=== PATIENT | female | born 1945 ===

== ENCOUNTER 2017-04-13 05:45 | Outpatient (RCR) | payer MEDICARE, MEDICAID ==
[~2017-04-13] VITALS: Ht 152.4 cm; Wt 62.0 kg
[~2017-04-13 05:45] MED LIST: LIDOCAINE/SOD BICARB 8.4% SYR SC PRN; LOPERAMIDE HCL 2 MG CAP PO PRN; PARICALCITOL 2 MCG/ML VIAL IVP PRN; PROMETHAZINE HCL 25 MG TAB PO PRN; diphenhydr DIALYSIS 50 MG/ML IVP PRN
[2017-04-13] MEDS: PARICALCITOL 2 MCG/ML VIAL IVP PRN (15:30)
[2017-04-15] MEDS: SODIUM FERRIC GLUC 62.5 MG/5ML IVP PRN (15:36)
[2017-04-15] MEDS: PARICALCITOL 2 MCG/ML VIAL IVP PRN (15:36)
[2017-04-15 16:09] LABS: PLATELET COUNT, AUTOMATED 125 K/uL (150-450)
[2017-04-17] MEDS: PARICALCITOL 2 MCG/ML VIAL IVP PRN (15:21)
[2017-04-17] MEDS: DARBEPOETIN ESRD 25 MCG/ML IVP PRN (15:21)
[2017-04-20] MEDS: PARICALCITOL 2 MCG/ML VIAL IVP PRN (16:12)
[2017-04-22] MEDS: SODIUM FERRIC GLUC 62.5 MG/5ML IVP PRN (15:49)
[2017-04-22] MEDS: PARICALCITOL 2 MCG/ML VIAL IVP PRN (15:49)
[2017-04-24] MEDS: DARBEPOETIN ESRD 25 MCG/ML IVP PRN (15:47)
[2017-04-24] MEDS: PARICALCITOL 2 MCG/ML VIAL IVP PRN (15:47)
[2017-04-27] MEDS: PARICALCITOL 2 MCG/ML VIAL IVP PRN (15:27)
[2017-04-29] MEDS: SODIUM FERRIC GLUC 62.5 MG/5ML IVP PRN (14:02)
[2017-04-29] MEDS: PARICALCITOL 2 MCG/ML VIAL IVP PRN (14:02)
[2017-05-01] MEDS: PARICALCITOL 2 MCG/ML VIAL IVP PRN (14:19)
[2017-05-04] MEDS: PARICALCITOL 2 MCG/ML VIAL IVP PRN (15:02)
[2017-05-06] MEDS: SODIUM FERRIC GLUC 62.5 MG/5ML IVP PRN (14:34)
[2017-05-06] MEDS: PARICALCITOL 2 MCG/ML VIAL IVP PRN (14:34)
[2017-05-06] MEDS ORDERED: CIN30PT PO (17:33)
[2017-05-08] MEDS: PARICALCITOL 2 MCG/ML VIAL IVP PRN (14:05)
[2017-05-11] MEDS: PARICALCITOL 2 MCG/ML VIAL IVP PRN (14:12)
[2017-05-13 14:19] LABS: PLATELET COUNT, AUTOMATED 67 K/uL (150-450)
[2017-05-13] MEDS: PARICALCITOL 2 MCG/ML VIAL IVP PRN (15:12)
[2017-05-13] MEDS: SODIUM FERRIC GLUC 62.5 MG/5ML IVP PRN (15:12)
[2017-05-15] MEDS: PARICALCITOL 2 MCG/ML VIAL IVP PRN (14:06)
[2017-05-18] MEDS: PARICALCITOL 2 MCG/ML VIAL IVP PRN (13:33)
[2017-05-20] MEDS ORDERED: AMLO-99 PO (11:56)
[2017-05-20] MEDS ORDERED: SEVE800T16 PO (11:56)
[2017-05-20] MEDS ORDERED: CLOP75TA PO (11:56)
[2017-05-20] MEDS ORDERED: ASPI81TA94 PO (11:56)
[2017-05-20] MEDS ORDERED: LEVO-3 PO (11:56)
[2017-05-20] MEDS ORDERED: HYDR-4309 PO (11:56)
[2017-05-20] MEDS ORDERED: CLON-327 PO (11:56)
[2017-05-20] MEDS ORDERED: GABA-549 PO (11:56)
[2017-05-20] MEDS ORDERED: ALPR-460 PO (11:56)
[2017-05-20] MEDS ORDERED: LOSA50TA68 PO (11:56)
[2017-05-20] MEDS: SODIUM FERRIC GLUC 62.5 MG/5ML IVP PRN (14:11)
[2017-05-20] MEDS: PARICALCITOL 2 MCG/ML VIAL IVP PRN (14:11)
--- NOTE | 2017-05-20 14:21 | EKG ---
FACILITY: [facility] PATIENT NAME: ERMELINDA UNGER : [id number] MR: [id number] V: [id number] EXAM DATE: ORDERING PHYSICIAN: ABIODUN CHAPMAN TECHNOLOGIST: CELESTE Stroud Reason : DIALYSIS Blood Pressure : / mmHG Vent. Rate : 050 BPM Atrial Rate : 050 BPM P-R Int : 186 ms QRS Dur : 118 ms QT Int : 506 ms P-R-T Axes : 061 -53 063 degrees QTc Int : 461 ms Sinus bradycardia Left anterior fascicular block Left ventricular hypertrophy with QRS widening Abnormal ECG No previous ECGs available Confirmed by KELSIE VALDOVINOS ([id number]) on 05/20/2017 8:49:24 PM Referred By: ADELA Confirmed By:KELSIE VALDOVINOS
[2017-05-22] MEDS: PARICALCITOL 2 MCG/ML VIAL IVP PRN (14:16)
[2017-05-22] MEDS ORDERED: OMEP-218 PO (15:54)
[2017-05-25] MEDS: PARICALCITOL 2 MCG/ML VIAL IVP PRN (14:19)
[2017-05-27] MEDS: PARICALCITOL 2 MCG/ML VIAL IVP PRN (14:15)
[2017-05-27] MEDS: SODIUM FERRIC GLUC 62.5 MG/5ML IVP PRN (14:15)
[2017-05-29] MEDS: PARICALCITOL 2 MCG/ML VIAL IVP PRN (14:33)
[2017-05-29] MEDS: DARBEPOETIN ESRD 25 MCG/ML IVP PRN (14:34)
--- NOTE | 2017-05-30 11:23 | ONCOLOGY FOLLOW UP NOTE ---
EVENT DATE: May 28, 2017 DIAGNOSES Thrombocytopenia. Could be due ITP versus extracorporeal circulation. CHIEF COMPLAINT Patient is here today for followup of her thrombocytopenia. HISTORY OF PRESENT ILLNESS Patient is a 71-year-old female with end-stage renal disease on hemodialysis who moved from [place] to [place], [place] recently. Patient is followed for her hemodialysis and they did a blood count recently which showed white count 4.4, hemoglobin 11.2, hematocrit 33.1, platelets 70,000. Patient denies any clinical bleeding, but she bruises easily. She had also a history of stroke in the past and coronary artery disease, and she is maintained on aspirin and Plavix currently. Repeat CBC showed a white count of 4.8, hemoglobin 12.2, hematocrit 35.8, platelets 71,000. B12 was normal at 646. Methylmalonic acid was normal at 0.4. Folate was normal at 7.6. Red cell folate was normal at 734. Platelet count associated antibodies and direct showed specific antibodies to type 1A/2A antigen, but indirect antibodies were negative. PAST MEDICAL HISTORY 1. End-stage renal disease on hemodialysis. 2. Hypertension. 3. Type 2 diabetes. 4. Anemia of chronic renal disease. 5. Secondary hyperparathyroidism. 6. Coronary artery disease status post triple bypass surgery. 7. History of stroke. PAST SURGICAL HISTORY 1. Triple bypass surgery in 2016. 2. Appendectomy. 3. Cholecystectomy. 4. Total abdominal hysterectomy and bilateral salpingo-oophorectomy. 5. Partial thyroidectomy. 6. Right nephrectomy. SOCIAL HISTORY The patient is and has two children. She is a housewife. She smokes about one pack every week for many years. Denies any abuse of alcohol or illicit drugs. FAMILY HISTORY Father had cancer of the tongue. CURRENT MEDICATIONS 1. [place] 5/325 one tablet every four hours p.r.n. for pain. 2. Gabapentin 300 mg at bedtime. 3. Cozaar 50 mg at bedtime. 4. Plavix 75 mg daily. 5. Clonidine 0.1 mg twice daily. 6. Baby aspirin 81 mg daily. 7. Amlodipine 10 mg daily. 8. Alprazolam 0.5 mg twice daily. 9. Levothyroxine 100 mcg daily. 10. Renvela 800 mg two tablets three times daily with meals. 11. Sensipar 30 mg daily. ALLERGIES No known drug allergies. REVIEW OF SYSTEMS CONSTITUTIONAL: No appetite or weight change. No fever, chills or sweating. No recent infection. HEENT: Ears: No tinnitus or hearing problem. Nose: No nasal discharge or epistaxis. Throat: No sore throat or mouth ulcers. Eyes: No diplopia or visual changes. RESPIRATORY: She is short winded sometimes. CARDIOVASCULAR: No chest pain, orthopnea, or paroxysmal nocturnal dyspnea (PND) . No edema. No palpitations. GASTROINTESTINAL: She has occasional diarrhea. GENITOURINARY: She has very little urine because of her end-stage renal disease. MUSCULOSKELETAL: No pain in the muscles, joints or bones. NEUROLOGICAL: She has tingling and numbness in her hands. HEMATOLOGIC/LYMPHATIC: No bleeding or easy bruising. She is weak, tired, and fatigued. SKIN: No skin rash or lumps. PSYCHIATRIC: No anxiety or depression. PHYSICAL EXAMINATION GENERAL: Looks stable. Well-developed, well-nourished, and in no acute distress. VITAL SIGNS: Blood pressure 134/53, pulse 53 per minute, respirations 16 per minute, temperature 98.1, pulse ox 93% on room air. HEENT: Head: Atraumatic. No sinus tenderness to palpation. Eyes: No icterus or conjunctivitis. Mouth and throat: No oral thrush or mucositis. NECK: Supple. No cervical or supraclavicular lymphadenopathy. LUNGS: Clear to auscultation and percussion bilaterally. HEART: Regular rate and rhythm. No gallops, murmurs, clicks or rubs. ABDOMEN: Soft and lax. No tenderness. No hepatosplenomegaly. No masses. EXTREMITIES: Left forearm AV fistula is noted. LYMPHATICS: No peripheral lymphadenopathy. NEUROLOGICAL: Conscious, alert and oriented times three. No focal motor or sensory deficits. PSYCHIATRIC: Mood and affect appear normal. SKIN: No skin rash, bruise or purpuric eruption. DIAGNOSTIC DATA CBC showed a white count of 4.8, hemoglobin 12.2, hematocrit 35.8, platelets 71, 000. Vitamin B12 normal at 646. Methylmalonic acid normal at 0.4. Serum folate normal at 7.6. Red cell folate is normal at 734. Platelet associated antibodies and direct was negative, but platelet associated antibodies direct showed antibodies to type 1A/2A antigen specific. ASSESSMENT Thrombocytopenia could be due to either ITP or extracorporeal circulation from hemodialysis. Her heparin-induced thrombocytopenia assay came back negative, indirect platelet associated antibodies was negative, but direct platelet count associated antibodies came back positive for specific type 1A/2A antigen. B12 folate and methylmalonic acid assay, red cell folate all came back within the normal range. As her platelet count currently is 71,000 which is safe, no indication of treatment at the moment. I am planning to see her again in three months from now, and if the patient will develop severe thrombocytopenia below 30,000 then we will try at that time to treat her as ITP with prednisone versus IVIG. I explained that to the patient and her daughter and they are agreeable with the plan of management. PLAN 1. Continue followup. 2. Patient to return in three months with CBC. 3. Patient to contact us for any new concerns or complaints. 4. Consider treatment for her thrombocytopenia if patient develops severe thrombocytopenia less than 30,000 or if she is clinically bleeding. MTDD
[2017-06-01] MEDS: PARICALCITOL 2 MCG/ML VIAL IVP PRN (14:14)
[2017-06-03] MEDS: PARICALCITOL 2 MCG/ML VIAL IVP PRN (14:05)
[2017-06-03] MEDS: SODIUM FERRIC GLUC 62.5 MG/5ML IVP PRN (14:05)
[2017-06-05] MEDS: PARICALCITOL 2 MCG/ML VIAL IVP PRN (14:37)
[2017-06-10] MEDS: PARICALCITOL 2 MCG/ML VIAL IVP PRN (13:26)
[2017-06-10] MEDS: SODIUM FERRIC GLUC 62.5 MG/5ML IVP PRN (13:26)
[2017-06-10 13:54] LABS: PLATELET COUNT, AUTOMATED 68 K/uL (150-450)
[2017-06-12] MEDS: DARBEPOETIN ESRD 25 MCG/ML IVP PRN (12:49)
[2017-06-12] MEDS: PARICALCITOL 2 MCG/ML VIAL IVP PRN (12:49)
[2017-06-15] MEDS: PARICALCITOL 2 MCG/ML VIAL IVP PRN (13:06)
[2017-06-17] MEDS ORDERED: CALC-515 PO (11:54)
[2017-06-17] MEDS: SODIUM FERRIC GLUC 62.5 MG/5ML IVP PRN (13:01)
[2017-06-17] MEDS: PARICALCITOL 2 MCG/ML VIAL IVP PRN (13:01)
[2017-06-24] MEDS: SODIUM FERRIC GLUC 62.5 MG/5ML IVP PRN (14:43)
[2017-06-26] MEDS: DARBEPOETIN ESRD 25 MCG/ML IVP PRN (15:25)
[2017-07-01] MEDS: SODIUM FERRIC GLUC 62.5 MG/5ML IVP PRN (11:14)
[2017-07-01] MEDS ORDERED: INFLUENZA VIRUS VAC 0.5 ML SYR IM ONLY ONE (14:00)
[2017-07-08] MEDS: SODIUM FERRIC GLUC 62.5 MG/5ML IVP PRN (12:07)
[2017-07-10] MEDS: DARBEPOETIN ESRD 25 MCG/ML IVP PRN (11:46)
[2017-07-15 12:15] LABS: PLATELET COUNT, AUTOMATED 67 K/uL (150-450)
[2017-07-15] MEDS: SODIUM FERRIC GLUC 62.5 MG/5ML IVP PRN (12:29)
[2017-07-22] MEDS: SODIUM FERRIC GLUC 62.5 MG/5ML IVP PRN (11:35)
[2017-07-24] MEDS: SODIUM FERRIC GLUC 62.5 MG/5ML IVP PRN (12:34)
[2017-07-24] MEDS: DARBEPOETIN ESRD 25 MCG/ML IVP PRN (12:34)
[2017-07-27] MEDS: SODIUM FERRIC GLUC 62.5 MG/5ML IVP PRN (12:14)
[2017-07-29] MEDS: SODIUM FERRIC GLUC 62.5 MG/5ML IVP PRN (11:29)
[2017-07-29] MEDS: DIALYSIS ACETAMINOPHEN 325 MG PO PRN (11:43)
[2017-08-05] MEDS: SODIUM FERRIC GLUC 62.5 MG/5ML IVP PRN (11:48)
[2017-08-05] MEDS: DIALYSIS ACETAMINOPHEN 325 MG PO PRN (14:31)
[2017-08-12] MEDS: SODIUM FERRIC GLUC 62.5 MG/5ML IVP PRN (12:29)
[2017-08-19] MEDS: SODIUM FERRIC GLUC 62.5 MG/5ML IVP PRN (11:33)
[2017-08-19 12:17] LABS: PLATELET COUNT, AUTOMATED 63 K/uL (150-450)
[2017-08-24] MEDS: DIALYSIS ACETAMINOPHEN 325 MG PO PRN (13:20)
[2017-08-26] MEDS: SODIUM FERRIC GLUC 62.5 MG/5ML IVP PRN (11:59)
[2017-08-26] MEDS ORDERED: HYDR25TA66 PO (12:28)
[2017-08-26] MEDS: DIALYSIS ACETAMINOPHEN 325 MG PO PRN (13:10)
[2017-08-26] MEDS: PARICALCITOL 2 MCG/ML VIAL IVP PRN (14:02)
[2017-08-28] MEDS: PARICALCITOL 2 MCG/ML VIAL IVP PRN (11:35)
[2017-08-31] MEDS: PARICALCITOL 2 MCG/ML VIAL IVP PRN (12:24)
[2017-09-02 11:34] LABS: PLATELET COUNT, AUTOMATED 102 K/uL (150-450)
[2017-09-02] MEDS: SODIUM FERRIC GLUC 62.5 MG/5ML IVP PRN (11:43)
[2017-09-02] MEDS: PARICALCITOL 2 MCG/ML VIAL IVP PRN (11:44)
[2017-09-04] MEDS: PARICALCITOL 2 MCG/ML VIAL IVP PRN (12:12)
[2017-09-07] MEDS: PARICALCITOL 2 MCG/ML VIAL IVP PRN (12:32)
[2017-09-09] MEDS: SODIUM FERRIC GLUC 62.5 MG/5ML IVP PRN (12:09)
[2017-09-09] MEDS: PARICALCITOL 2 MCG/ML VIAL IVP PRN (12:09)
[2017-09-09] MEDS ORDERED: CIN30PT PO (13:31)
[2017-09-11] MEDS: PARICALCITOL 2 MCG/ML VIAL IVP PRN (11:29)
[2017-09-14] MEDS: PARICALCITOL 2 MCG/ML VIAL IVP PRN (11:32)
[2017-09-16] MEDS: SODIUM FERRIC GLUC 62.5 MG/5ML IVP PRN (11:08)
[2017-09-16] MEDS: PARICALCITOL 2 MCG/ML VIAL IVP PRN (11:08)
[2017-09-16] MEDS: DIALYSIS ACETAMINOPHEN 325 MG PO PRN (13:25)
[2017-09-18] MEDS ORDERED: ESCI20TA38 PO (08:59)
[2017-09-18] MEDS: PARICALCITOL 2 MCG/ML VIAL IVP PRN (11:26)
[2017-09-18] MEDS: DIALYSIS ACETAMINOPHEN 325 MG PO PRN (13:27)
[2017-09-20] MEDS: PARICALCITOL 2 MCG/ML VIAL IVP PRN (11:52)
[2017-09-23] MEDS: SODIUM FERRIC GLUC 62.5 MG/5ML IVP PRN (11:46)
[2017-09-23] MEDS: PARICALCITOL 2 MCG/ML VIAL IVP PRN (11:46)
[2017-09-25] MEDS ORDERED: DARBEPOETIN ESRD 25 MCG/ML IVP PRN (07:00)
[2017-09-25] MEDS: PARICALCITOL 2 MCG/ML VIAL IVP PRN (12:16)
== END 2017-09-28 09:24 | disposition home or self-care (01) ==
LOC: DIAL 05:45
PROVIDERS: ATTEND Internal Medicine Nephrology
DX: E11.22 Type 2 diabetes mellitus with diabetic chronic kidney disease (principal); N18.6 End stage renal disease; D63.1 Anemia in chronic kidney disease; E03.9 Hypothyroidism, unspecified; Z99.2 Dependence on renal dialysis; I12.0 Hypertensive chronic kidney disease with stage 5 chronic kidney disease or end stage renal disease; Z79.02 Long term (current) use of antithrombotics/antiplatelets; E66.9 Obesity, unspecified; E78.5 Hyperlipidemia, unspecified; F41.9 Anxiety disorder, unspecified; E11.40 Type 2 diabetes mellitus with diabetic neuropathy, unspecified; K31.84 Gastroparesis; E87.5 Hyperkalemia; I25.2 Old myocardial infarction; Z86.19 Personal history of other infectious and parasitic diseases; Z86.73 Personal history of transient ischemic attack (TIA), and cerebral infarction without residual deficits; Z95.1 Presence of aortocoronary bypass graft; B19.10 Unspecified viral hepatitis B without hepatic coma; Z23 Encounter for immunization
CPT/HCPCS: 36416; 82040; 82108; 82247; 82306; 82310; 82330; 82374; 82465; 82565; 82728; 82947; 82948; 83036; 83540; 83550; 83970; 84075; 84100; 84132; 84295; 84443; 84460; 84478; 84520; 85018; 85025; 85049; 86580; 87340; 90999; A4657; A9270; G0008; G0472; J0882; J2501; J2916; Q2037; 86803; 90658; 90674; 93005

== ENCOUNTER 2017-09-28 05:56 | Outpatient (RCR) | payer MEDICARE, MEDICAID ==
[~2017-09-28 05:56] MED LIST changes: +ALPR-460 PO; +AMLO-99 PO; +ASPI81TA94 PO; +CALC-515 PO; +CIN30PT PO; +CLON-327 PO; +CLOP75TA PO; +DARBEPOETIN ESRD 25 MCG/ML IVP PRN; +ESCI20TA38 PO; +GABA-549 PO; +HYDR-4309 PO; +HYDR25TA66 PO; +LEVO-3 PO; +LOSA50TA68 PO; +OMEP-218 PO; -PARICALCITOL 2 MCG/ML VIAL IVP PRN; +SEVE800T16 PO
[2017-09-28] MEDS: PARICALCITOL 2 MCG/ML VIAL IVP PRN (11:47)
[2017-09-28] MEDS: DIALYSIS ACETAMINOPHEN 325 MG PO PRN (14:02)
[2017-09-30] MEDS: PARICALCITOL 2 MCG/ML VIAL IVP PRN (11:18)
[2017-09-30] MEDS: SODIUM FERRIC GLUC 62.5 MG/5ML IVP PRN (11:18)
[2017-09-30] MEDS: DIALYSIS ACETAMINOPHEN 325 MG PO PRN (13:32)
[2017-10-02] MEDS: PARICALCITOL 2 MCG/ML VIAL IVP PRN (12:15)
[2017-10-02] MEDS: DARBEPOETIN ESRD 25 MCG/ML IVP PRN (12:15)
[2017-10-05] MEDS: PARICALCITOL 2 MCG/ML VIAL IVP PRN (11:41)
[2017-10-07] MEDS: SODIUM FERRIC GLUC 62.5 MG/5ML IVP PRN (11:26)
[2017-10-07] MEDS: PARICALCITOL 2 MCG/ML VIAL IVP PRN (11:26)
[2017-10-07 11:37] LABS: PLATELET COUNT, AUTOMATED 109 K/uL (150-450)
[2017-10-07] MEDS: DIALYSIS ACETAMINOPHEN 325 MG PO PRN (14:38)
[2017-10-09] MEDS: DARBEPOETIN ESRD 25 MCG/ML IVP PRN (12:21)
[2017-10-09] MEDS: PARICALCITOL 2 MCG/ML VIAL IVP PRN (12:21)
[2017-10-12] MEDS: PARICALCITOL 2 MCG/ML VIAL IVP PRN (11:28)
[2017-10-14] MEDS: PARICALCITOL 2 MCG/ML VIAL IVP PRN (11:15)
[2017-10-14] MEDS: SODIUM FERRIC GLUC 62.5 MG/5ML IVP PRN (11:15)
[2017-10-16] MEDS: PARICALCITOL 2 MCG/ML VIAL IVP PRN (11:25)
[2017-10-16] MEDS: DARBEPOETIN ESRD 25 MCG/ML IVP PRN (11:25)
[2017-10-19] MEDS: PARICALCITOL 2 MCG/ML VIAL IVP PRN (11:25)
[2017-10-26] MEDS: PARICALCITOL 2 MCG/ML VIAL IVP PRN (12:26)
[2017-10-28] MEDS: PARICALCITOL 2 MCG/ML VIAL IVP PRN (12:21)
[2017-10-30] MEDS: PARICALCITOL 2 MCG/ML VIAL IVP PRN (12:13)
[2017-10-30] MEDS: DARBEPOETIN ESRD 25 MCG/ML IVP PRN (12:13)
[2017-11-02] MEDS: PARICALCITOL 2 MCG/ML VIAL IVP PRN (11:28)
[2017-11-04] MEDS: PARICALCITOL 2 MCG/ML VIAL IVP PRN (11:15)
[2017-11-06] MEDS: DARBEPOETIN ESRD 25 MCG/ML IVP PRN (12:12)
[2017-11-06] MEDS: PARICALCITOL 2 MCG/ML VIAL IVP PRN (12:12)
[2017-11-09] MEDS: PARICALCITOL 2 MCG/ML VIAL IVP PRN (12:31)
[2017-11-11] MEDS: PARICALCITOL 2 MCG/ML VIAL IVP PRN (11:39)
[2017-11-11 11:40] LABS: PLATELET COUNT, AUTOMATED 125 K/uL (150-450)
[2017-11-13] MEDS: DARBEPOETIN ESRD 25 MCG/ML IVP PRN (11:48)
[2017-11-13] MEDS: PARICALCITOL 2 MCG/ML VIAL IVP PRN (11:48)
== END 2017-11-13 15:30 | disposition home or self-care (01) ==
LOC: DIAL 05:56
PROVIDERS: ATTEND Internal Medicine Nephrology
DX: I12.0 Hypertensive chronic kidney disease with stage 5 chronic kidney disease or end stage renal disease (principal); E11.22 Type 2 diabetes mellitus with diabetic chronic kidney disease; N18.6 End stage renal disease; E03.9 Hypothyroidism, unspecified; N25.81 Secondary hyperparathyroidism of renal origin; Z99.2 Dependence on renal dialysis
CPT/HCPCS: 82040; 82108; 82247; 82310; 82374; 82465; 82565; 82728; 82947; 83036; 83540; 83550; 83970; 84075; 84100; 84132; 84295; 84443; 84460; 84478; 84520; 85018; 85025; 86580; 86706; 87340; 90999; A4657; G0472; J0882; J2501; J2916; 86803